=== PATIENT | female | born 1980 | race Caucasian/White ===

== ENCOUNTER 2020-03-22 16:53 | Inpatient (IN) | payer OTHER ==
[~2020-03-22 16:53] MED LIST: CARAFATE S500 MG/TSP PO; PROTONIX 40MG T40 MG PO; ZANTAC150 MG PO
[2020-03-22 18:36] LABS: BILIRUBIN 2+ mg/dL (NEGATIVE); BLOOD 1+ Ery/uL (NEGATIVE); COLOR YELLOW (YELLOW); GLUCOSE (U) NORMAL (NORMAL); LEUKOCYTES NEGATIVE Leu/uL (NEGATIVE); NITRITE NEGATIVE (NEGATIVE); PROTEIN 1+ mg/dL (NEGATIVE); SPECIFIC GRAVITY >=1.030 (1.001-1.030); UROBILINOGEN 0.2 mg/dL (0.2-1.0); pH 5.5 (5.0-9.0)
[2020-03-22 18:37] LABS: CLARITY SLIGHTLY HAZY (CLEAR)
[2020-03-22 18:38] LABS: BACTERIA TRACE
[2020-03-22 18:48] LABS: BASOPHIL 0.3 % (0-2); EOSINOPHIL 0.5 % (0-5); HCT 43.9 % (37.0-47.0); HGB 14.7 g/dl (12.5-16.0); LYMPHOCYTE 14.6 % (15-48); MCH 28.8 pg (25.0-31.0); MCHC 33.5 g/dL (32.0-36.0); MCV 85.9 fL (78.0-100.0); MONOCYTE 11.9 % (0-12); NEUTROPHIL 72.4 % (41-80); NRBC 0; PLT 434 K/uL (150-400); RBC 5.11 M/uL (4.20-5.40); RDW 11.7 % (11.5-14.0); WBC 11.8 K/uL (4.0-10.5)
[2020-03-22 19:22] LABS: ALBUMIN 3.7 g/dL (3.4-5.0); BILIRUBIN - TOTAL 0.5 mg/dL (0.2-1.0); BUN/CREAT RATIO (CALC) 24.5 RATIO; CREATININE 0.53 mg/dL (0.51-0.95); GLOBULIN (CALCULATION) 4.9 g/dL; POTASSIUM 4.5 mmol/L (3.5-5.1); TOTAL PROTEIN 8.6 g/dL (6.4-8.2)
[2020-03-23] MEDS ORDERED: SYNTHROID125 MCG PO (01:00)
[2020-03-23] MEDS ORDERED: PEPCID AC20 MG PO (01:01)
[2020-03-23] MEDS ORDERED: ADDERALL 20 MG20 MG PO (01:02)
[2020-03-23] MEDS ORDERED: CARAFATE1 GM PO (01:03)
[2020-03-23 04:46] LABS: HCT 36.8 % (37.0-47.0); HGB 12.1 g/dl (12.5-16.0); MCH 29.1 pg (25.0-31.0); MCHC 32.9 g/dL (32.0-36.0); MCV 88.5 fL (78.0-100.0); RBC 4.16 M/uL (4.20-5.40); RDW 11.8 % (11.5-14.0)
[2020-03-23 05:13] LABS: ALBUMIN 2.8 g/dL (3.4-5.0); BILIRUBIN - TOTAL 0.7 mg/dL (0.2-1.0); BUN/CREAT RATIO (CALC) 15.5 RATIO; CREATININE 0.58 mg/dL (0.51-0.95); GLOBULIN (CALCULATION) 3.8 g/dL
[2020-03-23 05:16] LABS: TOTAL PROTEIN 6.6 g/dL (6.4-8.2)
[2020-03-24 05:00] LABS: BASOPHIL 0.2 % (0-2); EOSINOPHIL 0 % (0-5); HCT 33.6 % (37.0-47.0); HGB 11.4 g/dl (12.5-16.0); LYMPHOCYTE 11.2 % (15-48); MCH 29.4 pg (25.0-31.0); MCHC 33.9 g/dL (32.0-36.0); MCV 86.6 fL (78.0-100.0); MONOCYTE 12.6 % (0-12); MPV 9.8 fL (6.0-9.5); NEUTROPHIL 75.8 % (41-80); NRBC 0; PLT 339 K/uL (150-400); RBC 3.88 M/uL (4.20-5.40); RDW 11.6 % (11.5-14.0); WBC 9.1 K/uL (4.0-10.5)
[2020-03-24 05:27] LABS: ALBUMIN 2.6 g/dL (3.4-5.0); BILIRUBIN - TOTAL 0.5 mg/dL (0.2-1.0); BUN/CREAT RATIO (CALC) 13.5 RATIO; CREATININE 0.52 mg/dL (0.51-0.95); GLOBULIN (CALCULATION) 3.8 g/dL; POTASSIUM 3.7 mmol/L (3.5-5.1); TOTAL PROTEIN 6.4 g/dL (6.4-8.2)
[2020-03-24] MEDS ORDERED: OXY-IR 5MG5 MG PO (14:21)
[2020-03-24] MEDS ORDERED: ACETAMINOPHEN500 M1 PO (14:21)
[2020-03-24] MEDS ORDERED: MOTRIN600 MG PO (14:21)
[2020-03-24] MEDS ORDERED: COLACE100 MG PO (14:21)
[2020-03-24] MEDS ORDERED: AUGMENTIN 875-1 EACH PO (14:21)
== END 2020-03-24 16:45 | disposition home or self-care (01) | DRG 418 ==
LOC: FER 16:53 → FMS 21:59
PROVIDERS: Allergy & Immunology Allergy; Emergency Medicine; Emergency Medicine Emergency Medical Services; Hospitalist; Student in an Organized Health Care Education/Training Program; ADMIT Internal Medicine
PROC: BF101ZZ Fluoroscopy of Bile Ducts using Low Osmolar Contrast (ICD-10-PCS; 2020-03-23)
PROC: 0FT44ZZ Resection of Gallbladder, Percutaneous Endoscopic Approach (ICD-10-PCS; principal; 2020-03-23 10:24)
PROC: 0DNW4ZZ Release Peritoneum, Percutaneous Endoscopic Approach (ICD-10-PCS; 2020-03-23 10:24)
DX: K80.12 Calculus of gallbladder with acute and chronic cholecystitis without obstruction (principal); K82.1 Hydrops of gallbladder; Z68.1 Body mass index [BMI] 19.9 or less, adult; K21.9 Gastro-esophageal reflux disease without esophagitis; E03.9 Hypothyroidism, unspecified; Z90.710 Acquired absence of both cervix and uterus; R63.6 Underweight; K29.70 Gastritis, unspecified, without bleeding
CPT/HCPCS: 36415; 74300; 80053; 81001; 83605; 83690; 85025; 87070; 87075; 94010; C1758; C9113; J1100; J1170; J1644; J1885; J2250; J2270; J2405; J2543; J2704; J2710; J3010; J7030; J7120; Q9967; U0002